=== PATIENT | female | born 1970 | race Caucasian/White ===

== ENCOUNTER 2023-11-09 10:21 | Observation (INO) ==
[2023-11-09] MEDS ORDERED: IOPAMIDOL 100 ML BOTTLE IV ONE (10:22)
[2023-11-09 10:43] LABS: POC Calcium, Ionized 1.22 (1.16-1.32); POC Creatinine 0.6 (0.6-1.2); POC Potassium 3.6 (3.3-5.1)
[2023-11-09 10:54] LABS: Basophils # (Auto) 0.02 K/mcL (0.00-0.30); Basophils % (Auto) 0.2 % (0.0-2.0); Eosinophils # (Auto) 0.05 K/mcL (0.00-0.70); Eosinophils % (Auto) 0.5 % (0.0-7.0); Hematocrit 38.7 % (34.1-44.9); Hemoglobin 12.5 g/dL (11.2-15.7); Lymphocytes # (Auto) 1.08 K/mcL (1.50-4.80); Lymphocytes % (Auto) 10.7 % (15.5-49.0); Mean Cell Volume 91.3 fL (80.0-100.0); Mean Corpuscular HGB Conc 32.3 g/dL (31.0-36.0); Mean Platelet Volume 10.3 fL (8.8-12.5); Monocytes # (Auto) 0.74 K/mcL (0.10-0.90); Monocytes % (Auto) 7.3 % (1.0-12.0); Neutrophils % (Auto) 81.1 % (38.0-78.0); Platelet Count 297 K/mcL (140-440); RBC 4.24 M/mcL (3.59-5.38); Red Cell Distribution Width 13.1 % (11.5-14.5); WBC 10.1 K/mcL (4.5-11.0)
[2023-11-09 11:13] LABS: ALT/SGPT 50 U/L (<40); AST/SGOT 60 U/L (<32); Albumin 4.2 gm/dL (3.2-5.2); Albumin/Globulin Ratio 1.8 (1.0-2.3); Alkaline Phosphatase 77 U/L (39-117); Bilirubin,Total 0.7 mg/dL (0.1-1.0); Blood Urea Nitrogen 9 mg/dL (6-20); Calcium 9.5 mg/dL (8.6-10.4); Carbon Dioxide 26 mmol/L (22-30); Chloride 100 mmol/L (96-108); Globulin 2.4 gm/dL (2.2-3.7); Glomerular Filtration Rate 97; Glucose 106 mg/dL (70-105)
[2023-11-09] MEDS: 0.9 % SODIUM CHLORIDE 1,000 ML IV ONE (11:34)
[2023-11-09 11:45] LABS: Appearance,Urine Clear (Clear); Bilirubin,Urine Negative (Negative); Color,Urine Yellow; Culture Indicated,Urine No; Glucose,Urine (UA) Negative (Negative); Ketones,Urine Negative (Negative); Leukocyte Esterase,Urine Negative /uL (Negative); Nitrate,Urine Negative (Negative); PH,Urine 7.5 (5.0-9.0); Protein,Urine Negative (Negative); Specific Gravity,Urine 1.015 (1.000-1.035); Urine Blood Negative ery/mcL (Negative); Urobilinogen,Urine Normal
[2023-11-09] MEDS: PIPERACILLIN SODIUM/TAZOBACTAM 3.375 GM in DEXTROSE 5% IN WATER 50 ML IV ONE (12:24)
[2023-11-09] MEDS ORDERED: PROMETHAZINE 25 MG/ML VIAL IV PRN (12:39)
[2023-11-09] MEDS ORDERED: ONDANSETRON 4 MG/2 ML VIAL IV PRN (12:45)
[2023-11-09] MEDS ORDERED: HYDROmorphone 1 MG/ML SYRINGE IV PRN (12:45)
[2023-11-09] MEDS: ACETAMINOPHEN 1,000 MG/100 ML BAG IV SCH (13:57)
[2023-11-09] MEDS: 0.9 % SODIUM CHLORIDE 1,000 ML IV SCH (13:57)
[2023-11-09] MEDS: PIPERACILLIN SODIUM/TAZOBACTAM 3.375 GM in DEXTROSE 5% IN WATER 100 ML IV SCH (15:28)
[2023-11-09] MEDS: PANTOPRAZOLE 40 MG VIAL IV SCH (19:20)
[2023-11-10 05:45] LABS: Basophils # (Auto) 0.03 K/mcL (0.00-0.30); Basophils % (Auto) 0.4 % (0.0-2.0); Eosinophils # (Auto) 0.13 K/mcL (0.00-0.70); Eosinophils % (Auto) 1.9 % (0.0-7.0); Hematocrit 34.1 % (34.1-44.9); Hemoglobin 10.9 g/dL (11.2-15.7); Lymphocytes # (Auto) 1.18 K/mcL (1.50-4.80); Lymphocytes % (Auto) 17.1 % (15.5-49.0); Mean Cell Volume 92.4 fL (80.0-100.0); Mean Platelet Volume 10.3 fL (8.8-12.5); Monocytes # (Auto) 0.61 K/mcL (0.10-0.90); Monocytes % (Auto) 8.8 % (1.0-12.0); Neutrophils % (Auto) 71.7 % (38.0-78.0); Platelet Count 242 K/mcL (140-440); RBC 3.69 M/mcL (3.59-5.38); Red Cell Distribution Width 13.4 % (11.5-14.5); WBC 6.9 K/mcL (4.5-11.0)
[2023-11-10 06:01] LABS: ALT/SGPT 51 U/L (<40); AST/SGOT 58 U/L (<32); Albumin 3.5 gm/dL (3.2-5.2); Albumin/Globulin Ratio 1.8 (1.0-2.3); Alkaline Phosphatase 71 U/L (39-117); Bilirubin,Direct 0.3 mg/dL (<0.3); Bilirubin,Total 0.8 mg/dL (0.1-1.0); Blood Urea Nitrogen 8 mg/dL (6-20); Calcium 8.8 mg/dL (8.6-10.4); Carbon Dioxide 25 mmol/L (22-30); Chloride 103 mmol/L (96-108); Glomerular Filtration Rate 83; Glucose 92 mg/dL (70-105); Lactate Dehydrogenase 180 U/L (135-225); Phosphorous 3.8 mg/dL (2.5-4.5); Triglycerides 64 mg/dL (<150); Uric Acid 2.2 mg/dL (2.5-8.0)
[2023-11-10] MEDS ORDERED: PROPOFOL 200 MG/20 ML VIAL IV ONE (09:39)
[2023-11-10] MEDS ORDERED: LIDOCAINE 2% PF 5 ML VIAL ONE (09:41)
[2023-11-10] MEDS ORDERED: ONDANSETRON 4 MG/2 ML VIAL ONE (09:41)
[2023-11-10] MEDS ORDERED: ROCURONIUM 10 MG/ML ML IV ONE (10:16)
[2023-11-10] MEDS ORDERED: SUGAMMADEX SODIUM 200 MG/2 ML VIAL IV ONE (10:17)
[2023-11-10] MEDS ORDERED: fentaNYL 100 MCG/2 ML VIAL ONE (11:06)
[2023-11-10] MEDS: SCOPOLAMINE 1 PATCH PATCH TOPICAL PRN (11:27)
[2023-11-10] MEDS ORDERED: DEXMEDETOMIDINE HCL 200 MCG/2 ML VIAL ONE (11:42)
[2023-11-10] MEDS ORDERED: IPRATROPIUM/ALBUTEROL 3 ML AMPUL.NEB NEB PRN ×2 (12:00→12:32)
[2023-11-10] MEDS ORDERED: DEXAMETHASONE 10 MG/ML VIAL ONE (12:02)
[2023-11-10] MEDS ORDERED: GLYCOPYRROLATE 0.2 MG/ML VIAL IV ONE (12:19)
[2023-11-10] MEDS: fentaNYL 100 MCG/2 ML VIAL IV PRN (13:08)
[2023-11-10] MEDS: LACTATED RINGERS 1,000 ML IV SCH (14:19)
[2023-11-10] MEDS: oxyCODONE IR 5 MG TABLET PO PRN (15:22)
[2023-11-11 07:36] LABS: Basophils # (Auto) 0.01 K/mcL (0.00-0.30); Basophils % (Auto) 0.1 % (0.0-2.0); Eosinophils # (Auto) 0 K/mcL (0.00-0.70); Eosinophils % (Auto) 0 % (0.0-7.0); Hematocrit 35.5 % (34.1-44.9); Hemoglobin 11.5 g/dL (11.2-15.7); Lymphocytes % (Auto) 6.9 % (15.5-49.0); Mean Cell Volume 91.7 fL (80.0-100.0); Mean Corpuscular HGB Conc 32.4 g/dL (31.0-36.0); Mean Platelet Volume 10.7 fL (8.8-12.5); Monocytes % (Auto) 3.4 % (1.0-12.0); Neutrophils % (Auto) 89.3 % (38.0-78.0); Platelet Count 271 K/mcL (140-440); RBC 3.87 M/mcL (3.59-5.38); Red Cell Distribution Width 13.3 % (11.5-14.5); WBC 11.7 K/mcL (4.5-11.0)
[2023-11-11 07:52] LABS: ALT/SGPT 99 U/L (<40); AST/SGOT 78 U/L (<32); Albumin 3.7 gm/dL (3.2-5.2); Albumin/Globulin Ratio 1.5 (1.0-2.3); Alkaline Phosphatase 111 U/L (39-117); Bilirubin,Direct < 0.2 mg/dL (0-0.3); Bilirubin,Total 0.3 mg/dL (0.1-1.0); Blood Urea Nitrogen 9 mg/dL (6-20); Calcium 8.9 mg/dL (8.6-10.4); Carbon Dioxide 23 mmol/L (22-30); Chloride 106 mmol/L (96-108); Globulin 2.4 gm/dL (2.2-3.7); Glomerular Filtration Rate 97; Glucose 124 mg/dL (70-105); Lactate Dehydrogenase 221 U/L (135-225); Phosphorous 2.8 mg/dL (2.5-4.5); Triglycerides 79 mg/dL (<150); Uric Acid 1.7 mg/dL (2.5-8.0)
[2023-11-11] MEDS: FLUZONE QUAD QS2023-24/PF 60 MCG/0.5 ML SYRINGE IM ONE (12:16)
== END 2023-11-11 15:20 | disposition home or self-care (01) ==
LOC: MEDSUR 10:21 → ED 10:21 → MEDSUR 13:40
PROVIDERS: ADMIT Family Medicine Adult Medicine; ATTEND Family Medicine Adult Medicine
PROC: LAPAPPY (ICD-10-PCS; 2023-11-10 11:46)

== ENCOUNTER 2024-03-25 06:53 | Inpatient (IN) ==
[2024-03-12 15:26] LABS: Basophils # (Auto) 0.03 K/mcL (0.00-0.30); Basophils % (Auto) 0.6 % (0.0-2.0); Eosinophils # (Auto) 0.14 K/mcL (0.00-0.70); Eosinophils % (Auto) 2.9 % (0.0-7.0); Hemoglobin 12.5 g/dL (11.2-15.7); Lymphocytes % (Auto) 31.3 % (15.5-49.0); Mean Cell Volume 92.2 fL (80.0-100.0); Mean Corpuscular HGB Conc 32.1 g/dL (31.0-36.0); Mean Platelet Volume 10.4 fL (8.8-12.5); Monocytes # (Auto) 0.38 K/mcL (0.10-0.90); Monocytes % (Auto) 7.9 % (1.0-12.0); Neutrophils % (Auto) 57.1 % (38.0-78.0); Platelet Count 286 K/mcL (140-440); RBC 4.23 M/mcL (3.59-5.38); Red Cell Distribution Width 13.4 % (11.5-14.5); WBC 4.8 K/mcL (4.5-11.0)
[2024-03-12 16:20] LABS: ALT/SGPT 27 U/L (<40); AST/SGOT 30 U/L (<32); Albumin 4.3 gm/dL (3.2-5.2); Albumin/Globulin Ratio 1.7 (1.0-2.3); Alkaline Phosphatase 71 U/L (39-117); Bilirubin,Total 0.3 mg/dL (0.1-1.0); Blood Urea Nitrogen 18 mg/dL (6-20); Calcium 9.6 mg/dL (8.6-10.4); Carbon Dioxide 29 mmol/L (22-30); Chloride 104 mmol/L (96-108); Globulin 2.6 gm/dL (2.2-3.7); Glomerular Filtration Rate 83; Glucose 105 mg/dL (70-105); Potassium 3.8 mmol/L (3.3-5.1); Sodium 142 mmol/L (133-145)
[2024-03-12 19:10] LABS: Estimated Average Glucose(eAG) 120 mg/dL; Hemoglobin A1C 5.8 % Hgb (4.0-6.0)
[2024-03-12 19:17] LABS: INR 0.9 (0.9-1.1); Prothrombin Time 12.2 sec (11.9-14.5)
[2024-03-21 13:25] LABS: Appearance,Urine HAZY (Clear); Bilirubin,Urine Negative (Negative); Color,Urine YELLOW; Culture Indicated,Urine No; Glucose,Urine (UA) Negative (Negative); Ketones,Urine Negative (Negative); Leukocyte Esterase,Urine Negative /uL (Negative); Nitrate,Urine Negative (Negative); Protein,Urine Negative (Negative); Specific Gravity,Urine 1.028 (1.000-1.035); Urine Blood Negative (Negative); Urobilinogen,Urine Negative
[~2024-03-25 06:53] MED LIST: IPRATROPIUM/ALBUTEROL 3 ML AMPUL.NEB NEB PRN; SCOPOLAMINE 1 PATCH PATCH TOPICAL PRN
[2024-03-25] MEDS: oxyCODONE 10 MG TAB.ER.12H PO SCH (07:31)
[2024-03-25] MEDS: PREGABALIN 75 MG CAPSULE PO SCH (07:31)
[2024-03-25] MEDS: CELECOXIB 200 MG CAPSULE PO SCH (07:31)
[2024-03-25] MEDS: ACETAMINOPHEN 500 MG TABLET PO SCH (07:32)
[2024-03-25] MEDS ORDERED: PROPOFOL 200 MG/20 ML VIAL IV ONE (08:19)
[2024-03-25] MEDS ORDERED: fentaNYL 100 MCG/2 ML VIAL ONE (08:19)
[2024-03-25] MEDS ORDERED: KETAMINE 50 MG/ML Syringe IV ONE (08:19)
[2024-03-25] MEDS ORDERED: DEXAMETHASONE 10 MG/ML VIAL ONE (08:20)
[2024-03-25] MEDS ORDERED: ROPIVACAINE HCL/PF 30 ML VIAL IJ ONE (08:20)
[2024-03-25] MEDS ORDERED: ONDANSETRON 4 MG/2 ML VIAL ONE (08:20)
[2024-03-25] MEDS ORDERED: LIDOCAINE 2% PF 5 ML VIAL ONE (08:20)
[2024-03-25] MEDS ORDERED: MAGNESIUM SULFATE 2 GM/50 ML BAG IV ONE (08:20)
[2024-03-25] MEDS: ceFAZolin 2 GM in DEXTROSE 5% IN WATER 50 ML IV SCH (09:18)
[2024-03-25] MEDS ORDERED: diphenhydrAMINE 50 MG/ML VIAL IV PRN (09:25)
[2024-03-25] MEDS ORDERED: NALOXONE HCL 0.4 MG/ML VIAL IV PRN (09:25)
[2024-03-25] MEDS ORDERED: ONDANSETRON 4 MG/2 ML VIAL IV PRN (09:25)
[2024-03-25] MEDS ORDERED: MEPERIDINE 25 MG/ML VIAL IV PRN (09:25)
[2024-03-25] MEDS ORDERED: IPRATROPIUM/ALBUTEROL 3 ML AMPUL.NEB NEB PRN (09:25)
[2024-03-25] MEDS ORDERED: DROPERIDOL 5 MG/2 ML VIAL IV PRN (09:25)
[2024-03-25] MEDS ORDERED: LACTATED RINGERS 250 ML IV PRN (09:25)
[2024-03-25] MEDS ORDERED: KETOROLAC 30 MG/ML VIAL IV PRN (09:25)
[2024-03-25] MEDS: 0.9 % SODIUM CHLORIDE 9 ML, KETOROLAC 30 MG, ROPIVACAINE HCL/PF 49.5 ML, EPINEPHrine 0.... IJ SCH (09:37)
[2024-03-25] MEDS ORDERED: ACETAMINOPHEN 325 MG TABLET PO PRN (09:48)
[2024-03-25] MEDS ORDERED: HYDROmorphone 1 MG/ML SYRINGE IV PRN (09:48)
[2024-03-25] MEDS ORDERED: POLYETHYLENE GLYCOL 3350 17 GM PACKET PO PRN (09:48)
[2024-03-25] MEDS ORDERED: MAGNESIUM HYDROXIDE 30 ML ORAL.SUSP PO PRN (09:48)
[2024-03-25] MEDS: fentaNYL 100 MCG/2 ML VIAL IV PRN (10:21)
[2024-03-25] MEDS: TRANEXAMIC ACID 1,000 MG/10 ML VIAL IV ONE (10:31)
[2024-03-25] MEDS: METHOCARBAMOL 1,000 MG/10 ML VIAL IV PRN (10:40)
[2024-03-25] MEDS: HYDROmorphone 0.5 MG/0.5 ML SYRINGE IV PRN (10:47)
[2024-03-25] MEDS ORDERED: ONDANSETRON 4 MG ODT TABLET SL PRN (11:36)
[2024-03-25] MEDS: KETOROLAC 15 MG/ML VIAL IV SCH (12:38)
[2024-03-25] MEDS: 0.9 % SODIUM CHLORIDE 10 ML SYRINGE IV SCH (12:39)
[2024-03-25] MEDS: LACTATED RINGERS 1,000 ML IV SCH (12:59)
[2024-03-25] MEDS: 0.45 % SODIUM CHLORIDE 1,000 ML IV SCH (12:59)
[2024-03-25] MEDS: ceFAZolin 1 GM VIAL IV SCH (17:32)
[2024-03-25] MEDS: SENNOSIDES 1 TABLET PO SCH (20:41)
[2024-03-25] MEDS: ASPIRIN 81 MG TAB.CHEW PO SCH (20:41)
[2024-03-26] MEDS: oxyCODONE/APAP 5/325MG TABLET PO PRN (08:42)
== END 2024-03-26 10:10 | disposition home or self-care (01) | DRG 489 ==
LOC: MEDSUR 06:53
PROVIDERS: ADMIT Orthopaedic Surgery; ATTEND Orthopaedic Surgery